=== PATIENT | male | born 1995 | race Caucasian/White ===

== ENCOUNTER 2022-11-21 16:59 | Emergency (ER) | payer OTHER, SELFPAY ==
[2022-11-21 17:12] VITALS: BP 136/80; PULSE 70; RESP 16; TEMP 37.4; O2SAT 100
--- NOTE | 2022-11-21 17:19 | ED.URI ---
HPI - URI/Sore Throat General Chief Complaint: Upper Respiratory Infection Stated Complaint: Covid test Source: patient and RN notes reviewed History of Present Illness HPI Narrative: 27-year-old male presents to urgent care for a well check. Patient states he was around someone COVID 1 week ago. Patient denies any symptoms but just wanted to be checked out. Patient denies any fevers, chills, ear pain, cough, shortness of breath, chest pain, vomiting, or diarrhea. Some parts of this dictation were generated by voice recognition software and may contain typographical and/or grammatical inaccuracies. Related Data Home Medications Medication Instructions Recorded Confirmed No Home Medications 11/21/22 11/21/22 Allergies Allergy/AdvReac Type Severity Reaction Status Date / Time No Known Allergies Allergy Verified 11/21/22 17:17 Review of Systems Review of Systems: Pertinent positives and pertinent negatives per HPI. PMFSH Comments At the time of my signature, I reviewed and agree with the nursing past medical, surgical, social, and family history. There is no relevant family history pertinent to the patient complaint. Exam Narrative: GENERAL: This is a well-nourished, well-developed patient, in no apparent distress. HEAD: normocephalic, atraumatic. EYES: Sclera clear/white. Vision is grossly intact. EARS: External ears normal, auditory canals clear and without drainage. Hearing grossly intact. NOSE: External nose normal with no obvious nasal discharge, nares without redness, no rhinorrhea. THROAT: Mucous membranes moist, posterior pharynx clear. NECK: Neck supple, non-tender without lymphadenopathy, masses or thyromegaly. CARDIOVASCULAR: Regular rate and rhythm without murmurs, gallops, or rubs. RESPIRATORY: Clear to auscultation. Breath sounds equal bilaterally. No wheezes, rales, or rhonchi. GASTROINTESTINAL: Abdomen soft, non-tender, nondistended. Bowel sounds are active. No hepato-splenomegaly, or palpable masses. No guarding. SKIN: warm, intact with no suspicious lesions or rash, good texture and turgor. NEURO: awake, alert, and oriented to person, place and time. There were no obvious focal neurologic abnormalities. Course Course Level of Care: Express Care Visit Vital Signs Vital signs: Vital Signs Temperature 99.4 F 11/21/22 17:12 Pulse Rate 70 11/21/22 17:12 Respiratory Rate 16 11/21/22 17:12 Blood Pressure 136/80 11/21/22 17:12 Pulse Oximetry 100 11/21/22 17:12 Oxygen Delivery Room Air 11/21/22 17:12 Temperature 99.4 F 11/21/22 17:12 Pulse Rate 70 11/21/22 17:12 Respiratory Rate 16 11/21/22 17:12 Blood Pressure 136/80 11/21/22 17:12 Pulse Oximetry 100 11/21/22 17:12 Oxygen Delivery Room Air 11/21/22 17:12 reviewed. MDM - URI/Sore Throat Differential Diagnosis Differential diagnosis: Likely upper respiratory infection, viral infection and other (well adult check) Critical Care Time Critical Care Time Critical Care Time: No Discharge Plan Discharge Clinical Impression: Encounter for well adult exam without abnormal findings Patient Disposition: Home, Self-Care Condition: Stable Instructions: General Patient Instructions Prescriptions: No Action No Home Medications Follow-up/Referrals: Raoul Burch MD [Primary Care Provider] - Stand Alone Forms: Work/School Release IP Time of Disposition: 17:20
== END 2022-11-21 17:24 | disposition home or self-care (01) ==
PROVIDERS: Emergency Provider Nurse Practitioner Family; PCP Family Medicine
DX: Z03.89 Encounter for observation for other suspected diseases and conditions ruled out (principal)
CPT/HCPCS: 99211; G0463